=== PATIENT | female | born 1955 | race Asian ===

== ENCOUNTER 2022-11-09 12:53 | Day surgery (SDC) | payer OTHER ==
[2022-11-09] MEDS ORDERED: MIDAZOLAM 2 MG/2 ML VIAL ONE (13:55)
[2022-11-09] MEDS ORDERED: fentaNYL citrate 0.05 MG/ML VIAL ONE (13:55)
[2022-11-09] MEDS ORDERED: MIDAZOLAM 2 MG/2 ML VIAL IVP ONE (15:40)
== END 2022-11-09 15:31 | disposition home or self-care (01) ==
LOC: MDS 12:53 → MMU 12:55 → MDS 15:31
PROVIDERS: ATTEND Internal Medicine Gastroenterology
DX: K21.9 Gastro-esophageal reflux disease without esophagitis (principal); I10 Essential (primary) hypertension; M85.80 Other specified disorders of bone density and structure, unspecified site; Z79.899 Other long term (current) drug therapy
CPT/HCPCS: 43235; J2250; J3010